=== PATIENT | female | born 1990 | race Caucasian/White ===

== ENCOUNTER 2018-06-12 10:00 | Emergency (ER) | payer MEDICAID ==
[~2018-06-12] VITALS: Ht 162.6 cm; Wt 72.6 kg
[2018-06-12 10:25] VITALS: BP 118/72
== END 2018-06-12 10:33 | disposition left against medical advice (07) ==
LOC: ER 10:00
DX: R30.0 Dysuria (principal); R35.0 Frequency of micturition; Z53.21 Procedure and treatment not carried out due to patient leaving prior to being seen by health care provider

== ENCOUNTER 2018-12-14 11:23 | Emergency (ER) | payer SELFPAY ==
[~2018-12-14] VITALS: Ht 162.6 cm; Wt 72.6 kg
[2018-12-14 12:33] VITALS: BP 121/69
== END 2018-12-14 12:49 | disposition home or self-care (01) ==
LOC: ER 11:23
DX: N39.0 Urinary tract infection, site not specified (principal)